=== PATIENT | female | born 1995 | race Two or more races ===

== ENCOUNTER 2020-12-20 21:07 | Emergency (ER) | payer OTHER ==
[~2020-12-20] VITALS: Ht 157.5 cm; Wt 59.1 kg
[2020-12-20 21:07] VITALS: BP 138/90
--- NOTE | 2020-12-20 21:18 | PHYS DOC ---
Adult General Chief Complaint Chief Complaint: SHORTNESS OF BREATH HPI HPI Patient is a 45-year-old female presents emergency department chief complaint of asthma attack for the past day. Patient states she recently moved here from [place] approximately 2 months ago and has been having difficulties with environmental allergies. Patient states she does not have any asthma medications, does not take any allergy medications currently. Patient reports her last menstrual cycle was 1 week ago, is currently on control, denies allergies to medications. Denies chest pains, chest congestion, cough, nasal congestion, recent fever or chills. Patient denies rash to her skin, patient denies any other physical complaints or physical concerns. Patient denies smoking cigarettes, denies alcohol consumption, denies illicit drug use. (LAURI SHARP APRN) Review of Systems Review of Systems 14 body systems of review of systems have been reviewed. See HPI for pertinent positives and negative responses, otherwise all other systems are negative, nonpertinent or noncontributory. Constitutional: Negative except as outlined in HPI above. Skin: Negative except as outlined in HPI above. Eyes: Negative except as outlined in HPI above. HENT: Negative except as outlined in HPI above. Respiratory: Negative except as outlined in HPI above. Cardiovascular: Negative except as outlined in HPI above. GI: Negative except as outlined in HPI above. : Negative except as outlined in HPI above. Musculoskeletal: Negative except as outlined in HPI above. Integument: Negative except as outlined in HPI above. Neurologic: Negative except as outlined in HPI above. Endocrine: Negative except as outlined in HPI above. Lymphatic: Negative except as outlined in HPI above. Psychiatric: Negative except as outlined in HPI above. (LAURI SHARP APRN) Physical Exam Physical Exam Constitutional: Well developed, well nourished, no acute distress, non-toxic appearance. 25-year-old female in mild respiratory distress. Audible I/E wheezing appreciated during physical exam. Patient speaking in 3 word sentences. HENT: Normocephalic, atraumatic. Bilateral TMs within normal limits, oropharynx moist, pink, no infectious process appreciated, no drooling, no trismus appreciated. Patient speaking in normal voice tones. Eyes: Conjunctiva normal, no discharge. Neck: Normal range of motion, no stridor. Cardiovascular: No cyanosis appreciated, distal cap refill less than 2 seconds. Lungs & Thorax: Audible I/E wheezing appreciated, wheezing all lung bourgeois per auscultation inspiratory and expiratory. No other adventitious lung sounds appreciated. Abdomen: Nontender, no abnormalities noted. Skin: Warm, dry, no erythema, no rash. Back: No tenderness, no deformities. Extremities: No tenderness, no cyanosis, no clubbing, ROM intact, no edema. Neurologic: Alert and oriented X 3, normal motor function, normal sensory function, no focal deficits noted. Psychologic: Affect normal, judgement normal, mood normal. (LAURI SHARP APRN) EKG EKG [] (LAURI SHARP APRN) Radiology/Procedures Radiology/Procedures PATIENT: SCAR BUTLEROUNT: [id number] : 1995 LOCATION: ER AGE: 25 SEX: F EXAM STATUS: DEP ER ORD. PHYSICIAN: LAURI SHARP APRN REASON: short of breath PROCEDURE: CHEST AP ONLY XR CHEST 1V 12/20/2020 9:49 PM INDICATION: Shortness of breath COMPARISON: None available TECHNIQUE: Portable frontal view of the chest is provided. FINDINGS: The cardiomediastinal silhouette is within normal limits. Lungs are clear. There are no significant pleural effusions. There is no pulmonary vascular congestion. No pneumothorax. No suspicious osseous abnormality. IMPRESSION: There is no acute cardiopulmonary process. Electronically signed by: Sanjya Packer MD (12/20/2020 10:59 PM) [facility] DICTATED AND SIGNED BY: SANJAY PACKER MD DATE: 12/20/20 7905 CC: LAURI SHARP APRN; PCP,UNKNOWN ~MTH0 0 (LAURI SHARP APRN) Heart Score C/O Chest Pain: No Risk Factors: Risk Factors: DM, Current or recent (<one month) smoker, HTN, HLP, family history of CAD, obesity. Risk Scores: Risk Factors: DM, Current or recent (<one month) smoker, HTN, HLP, family history of CAD, obesity. (LAURI SHARP APRN) Course & Med Decision Making Course & Med Decision Making Pertinent Labs and Imaging studies reviewed. (See chart for details) 25-year-old female, vital signs reviewed, presents emergency department complaining of acute asthma attack that started this morning. Patient does have audible i.e. wheezing, most likely triggered from recent move from [place] with environmental changes. Related to patient's history of non-smoking will order albuterol nebulizer treatment, p.o. steroids, portable chest x-ray. After period of time, reexamination of patient found patient in no apparent distress, in no respiratory distress, lung sounds clear to auscultate, patient states she feels much better now. Discussed with patient chest x-ray negative for acute process, will prescribe albuterol HFA MDI, prednisone 20 mg daily x5 days, strict follow-up with primary care physician for ongoing evaluation of asthma problems, recommended to patient starting Zyrtec for seasonal allergies most likely related to environmental change from moving from [place] to [facility]. Patient gave verbal understanding discharge home instructions, follow-up with PCP soon, medication use, return to ER precautions or concerns, patient is hemodynamically stable at discharge, no apparent distress, no respiratory distress, states she is ready to go home, patient was discharged home without incident. (LAURI HSARP APRN) Course & Med Decision Making Did not see or evaluate patient. Agree with TRIM SETTER's work-up and disposition per note. (CHERELLE ROBERTS MD) Dragon Disclaimer Dragon Disclaimer This electronic medical record was generated, in whole or in part, using a voice recognition dictation system. (LAURI SHARP APRN) Departure Departure: Impression: Primary Impression: Asthma exacerbation Additional Impression: Seasonal allergic rhinitis Disposition: HOME / SELF CARE / HOMELESS Condition: GOOD Referrals: PCP,UNKNOWN (PCP) Patient Instructions: Allergic Rhinitis, Asthma, Adult Additional Instructions: You were seen today for allergy symptoms and asthma symptoms. Your chest x-ray did not show any signs of pneumonia. I have treated you with a albuterol breath ing treatment and a oral steroid, I am prescribing you an oral steroid you will take 1 tablet each day for the next 5 days. I recommend you use [id number]-[id number] Zyrtec or Claritin for your nasal congestion as we discussed this is most likely from your environmental change from moving from [place] to the [facility] area. You may also try Sudafed for your nasal congestion and allergies. Increasing your water intake will also help with your symptoms. Please follow-up with your primary care physician for a detailed assessment of your asthma symptoms as your primary care physician may start you on an inhaler to prevent you from having asthma exacerbations. Please return to the emergency department for worsening symptoms or other concerns. It was a pleasure taking care of you today in the emergency department and I thank you for allowing me to participate in your emergency healthcare needs. EMERGENCY DEPARTMENT GENERAL DISCHARGE INSTRUCTIONS Thank you for coming to [facility] (ED) today and trusting us with you care. We trust that you had a positivie experience in our Emergency Department. If you wish to speak to the department management, you may call the director at [phone]. YOUR FOLLOW UP INSTRUCTIONS ARE FOLLOWS: 1. Do you have a private Doctor? If you do not have a private doctor, please ask for a resource list of physicians or clinics that may be able to assist you with follow up care. 2. The Emergency Physician has interpreted your x-rays. The X-Ray specialist will also review them. If there is a change in the findings, you will be notified in 48 hours when at all possible. 3. A lab test or culture has been done, your results will be reviewed and you will be notified if you need a change in treatment. ADDITIONAL INSTRUCTIONS AND INFORMATION: 1. Your care today has been supervised by a physician who is specially trained in emergency care. Many problems require more than one evaluation for a complete diagnosis and treatment. We recommend that you schedule your follow up appointment as recommended to ensure complete treatment of you illness or injury. If you are unable to obtain follow up care and continue to have a problem, or if your condition worsens, we recommend that you return to the ED. 2. We are not able to safely determine your condition over the phone nor are we able to give sound medical advice over the phone. For these safety reasons, if you call for medical advice we will ask you to come to the ED for further evaluation. 3. If you have any questions regarding these discharge instructions please call the ED at [phone]. SAFETY INFORMATION: In the interest of safety, wellness, and injury prevention; we encourage you to wear your sealbelt, if you smoke; quite smoking, and we encourage family to use a protective helmet for bicycling and other sporting events that present an increased risk for head injury. IF YOUR SYMPTOMS WORSEN OR NEW SYMPTOMS DEVELOP, OR YOU HAVE CONCERNS ABOUT YOUR CONDITION; OR IF YOUR CONDITION WORSENS WHILE YOU ARE WAITING FOR YOUR FOLLOW UP APPOINTMENT; EITHER CONTACT YOUR PRIMARY CARE DOCTOR, THE PHYSICIAN WHOSE NAME AND NUMBER YOU WERE GIVEN, OR RETURN TO THE ED IMMEDIATELY. Scripts Prednisone (PREDNISONE) 20 Mg Tablet 1 TAB PO DAILY for allergies for 5 Days, #5 TAB 0 Refills Prov: LAURI SHARP APRN 12/20/20 Albuterol Sulfate (PROAIR HFA INHALER) 8.5 Gm Hfa.aer.ad 2 PUFF IH PRN Q4-6HRS PRN for wheezing for 21 Days, #1 INHALER 0 Refills Prov: LAURI SHARP APRN 12/20/20 Problem Qualifiers Primary Impression: Asthma exacerbation Asthma severity: mild Asthma persistence: intermittent Qualified Codes: J45.21 - Mild intermittent asthma with (acute) exacerbation Additional Impression: Seasonal allergic rhinitis Allergic rhinitis trigger: unspecified Qualified Codes: J30.2 - Other seasonal allergic rhinitis LAURI SHARP APRN Dec 20, 2020 21:17 CHERELLE ROBERTS MD Dec 21, 2020 20:48
[2020-12-20] MEDS ORDERED: ALBUTEROL SULFATE 2.5 MG/3 ML NEBU. NEB ONE (21:30)
[2020-12-20] MEDS ORDERED: predniSONE 20 MG TABLET PO ONE (21:30)
[2020-12-20] MEDS ORDERED: ALBU2.5V8 IH (22:21)
[2020-12-20] MEDS ORDERED: PRED20TA PO (22:21)
--- NOTE | 2020-12-20 23:01 | RAD ---
XR CHEST 1V 12/20/2020 9:49 PM INDICATION: Shortness of breath COMPARISON: None available TECHNIQUE: Portable frontal view of the chest is provided. FINDINGS: The cardiomediastinal silhouette is within normal limits. Lungs are clear. There are no significant pleural effusions. There is no pulmonary vascular congestion. No pneumothora x. No suspicious osseous abnormality. IMPRESSION: There is no acute cardiopulmonary process. Electronically signed by: Sherri No MD (12/20/2020 10:59 PM) [facility]
== END 2020-12-20 22:26 | disposition home or self-care (01) ==
LOC: ER 21:07
DX: J45.901 Unspecified asthma with (acute) exacerbation (principal)
CPT/HCPCS: 71045; 94640; 99283; J7512; J7613